=== PATIENT | female | born 1955 | race Caucasian/White ===

== ENCOUNTER 2020-12-05 13:42 | Outpatient (CLI) | payer MEDICARE | END 2020-12-05 13:43 | disposition home or self-care (01) | LOC: BICMAMMO 13:42 | PROVIDERS: ATTEND Family Medicine | DX: Z12.31 Encounter for screening mammogram for malignant neoplasm of breast (principal); Z98.82 Breast implant status | CPT/HCPCS: 77063; 77067 ==

== ENCOUNTER 2021-08-11 14:20 | Outpatient (CLI) | payer MEDICARE | END 2021-08-11 14:21 | disposition home or self-care (01) | LOC: ULT 14:20 | PROVIDERS: ATTEND Family Medicine | DX: R01.1 Cardiac murmur, unspecified (principal); I08.1 Rheumatic disorders of both mitral and tricuspid valves | CPT/HCPCS: 93306 ==

== ENCOUNTER 2021-10-13 09:46 | Outpatient (CLI) | payer OTHER | END 2021-10-13 09:47 | disposition home or self-care (01) | LOC: DTY/OP 09:46 | PROVIDERS: ATTEND Family Medicine | DX: E66.9 Obesity, unspecified (principal); Z68.34 Body mass index [BMI] 34.0-34.9, adult; Z71.3 Dietary counseling and surveillance | CPT/HCPCS: 97802 ==

== ENCOUNTER 2021-12-18 13:32 | Outpatient (CLI) | payer MEDICARE | END 2021-12-18 13:33 | disposition home or self-care (01) | LOC: BICMAMMO 13:32 | PROVIDERS: ATTEND Family Medicine | DX: Z12.31 Encounter for screening mammogram for malignant neoplasm of breast (principal); Z13.820 Encounter for screening for osteoporosis; Z78.0 Asymptomatic menopausal state; M85.89 Other specified disorders of bone density and structure, multiple sites; Z79.890 Hormone replacement therapy; Z98.82 Breast implant status | CPT/HCPCS: 77063; 77067; 77080 ==

== ENCOUNTER 2024-11-06 10:44 | Outpatient (CLI) | payer OTHER | END 2024-11-06 10:45 | disposition home or self-care (01) | LOC: BICMAMMO 10:44 | PROVIDERS: ATTEND Family Medicine | DX: Z12.31 Encounter for screening mammogram for malignant neoplasm of breast (principal); Z78.0 Asymptomatic menopausal state; M81.0 Age-related osteoporosis without current pathological fracture; M85.89 Other specified disorders of bone density and structure, multiple sites; Z98.82 Breast implant status | CPT/HCPCS: 77063; 77067; 77080 ==